=== PATIENT | male | born 1990 | race American Indian/Alaskan Native ===

== ENCOUNTER 2018-02-02 09:56 | Emergency (ER) | payer OTHER ==
[2018-02-02] MEDS ORDERED: NORCO 10/325 PO ONE (12:57)
[2018-02-02] MEDS ORDERED: ZOFRAN ODT PO ONE (12:57)
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
[2018-02-02 13:20] VITALS: BP 124/80
== END 2018-02-02 13:19 | disposition home or self-care (01) ==
LOC: ED 09:56
DX: S39.012A Strain of muscle, fascia and tendon of lower back, initial encounter (principal); Z88.1 Allergy status to other antibiotic agents; V89.2XXA Person injured in unspecified motor-vehicle accident, traffic, initial encounter; Y93.89 Activity, other specified; Y92.89 Other specified places as the place of occurrence of the external cause; Y99.8 Other external cause status
CPT/HCPCS: 99282; Q0162